=== PATIENT | male | born 1995 | race African-American/Black ===

== ENCOUNTER 2016-11-06 13:20 | Inpatient (IN) ==
[2016-11-06] MEDS ORDERED: HYDROmorphone 2 MG/1 ML VIAL ONE ×4 (13:33→18:17)
[2016-11-06] MEDS ORDERED: ONDANSETRON 4 MG/2 ML VIAL ONE ×3 (13:33→17:52)
[2016-11-06] MEDS ORDERED: SODIUM CHLORIDE 0.9% 1,000 ML IV STA (13:35)
[2016-11-06] MEDS ORDERED: GENTAMICIN INJ 140 MG in SODIUM CHLORIDE 0.9% 100 ML IV STA (13:36)
[2016-11-06] MEDS ORDERED: FAMOTIDINE 20 MG/2 ML VIAL IV STA (13:37)
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
[2016-11-06] MEDS ORDERED: ONDANSETRON 4 MG/2 ML VIAL IV STA (13:48)
[2016-11-06] MEDS ORDERED: HYDROmorphone 2 MG/1 ML VIAL IV STA ×2 (13:48→14:16)
[2016-11-06] MEDS ORDERED: DIPH/TET/ACEL PERT BOOSTER VACCINE 0.5 ML VIAL IM ONE ×2 (14:16→14:29)
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
[2016-11-06] MEDS ORDERED: ceFAZolin 1,000 MG VIAL ONE (14:29)
[2016-11-06 14:30] LABS: Basophils % 0.2 % (0.0-0.8); Eosinophils % 0.3 % (0.00-10.9); Hematocrit 43.7 VOL% (42.0-52.0); Hemoglobin 14.8 GM/DL (14.0-18.0); Immature Granulocytes % 0.3 %; Immature Granulocytes Absolute 0.04 #; Lymphocytes # 1.4 10*3/uL (1.4-4.0); Lymphocytes % 12.2 % (21.2-54.2); Mean Corpuscular HGB Conc 33.9 GM/DL (32-36); Mean Corpuscular Hemoglobin 31 PG (27-34); Mean Corpuscular Volume 90.1 FL (87-102); Mean Platelet Volume 9.9 FL (9.6-12.0); Monocytes # 0.6 10*3/uL (0.11-0.8); Monocytes % 5.1 % (1.7-12.7); Neutrophils # 9.4 10*3/uL (1.4-7.4); Neutrophils % 81.9 % (38.7-73.9); Platelet Count 213 T/CUMM (130-400); Red Blood Count 4.85 MC/CUMM (3.8-5.5); Red Cell Distribution Width 11.7 % (9.3-17.3); White Blood Count 11.5 T/CUMM (4-12)
[2016-11-06 14:40] LABS: INR 1.2; PT Patient Result 13.1 SECS; Partial Thromboplastin Time 26.8 SECS (0-40)
[2016-11-06] MEDS ORDERED: FAMOTIDINE 20 MG/2 ML VIAL IV ONE (14:48)
[2016-11-06 14:52] LABS: Albumin 4.2 G/DL (3.4-5.0); Bilirubin,Total 0.6 MG/DL (0.2-1.0); Calcium 9.2 MG/DL (8.5-10.1); Osmolality,Calculated 283.1 MOS/KG (273-304); Potassium 3.7 MMOL/L (3.5-5.1); Total Protein 7.5 G/DL (6.4-8.3)
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
[2016-11-06] MEDS ORDERED: SUCCINYLCHOLINE 200 MG/10 ML VIAL ONE (15:20)
[2016-11-06] MEDS ORDERED: PROPOFOL 200 MG/20 ML VIAL IV ONE (15:20)
[2016-11-06] MEDS ORDERED: LIDOCAINE 100 MG/5 ML SYRINGE ONE (15:20)
[2016-11-06] MEDS ORDERED: ROCURONIUM 100 MG/10 ML VIAL IV ONE (15:20)
[2016-11-06] MEDS ORDERED: ONDANSETRON 4 MG/2 ML VIAL IV PRN ×3 (15:45→17:49)
[2016-11-06] MEDS ORDERED: MAGNESIUM HYDROXIDE SUSP 30 ML UDCUP PO PRN (15:45)
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
[2016-11-06] MEDS ORDERED: HYDROmorphone 2 MG/1 ML VIAL IV PRN (15:55)
[2016-11-06] MEDS ORDERED: KETOROLAC 30 MG/1 ML VIAL IV PRN (17:00)
[2016-11-06] MEDS ORDERED: BACITRACIN OINT 0.9 GM PACK TOP ONE (17:10)
--- NOTE | 2016-11-06 17:31 | Anesthesia ---
Anesthesia Post OP - Post Ansesthetic Evaluation Patient seen in post op: Yes Resp: within normal limits CV: within normal limits Mental: within normal limits Temp: within normal limits [id number]: within normal limits Nausea and Vomiting: within normal limits Pain: within normal limits
[2016-11-06] MEDS ORDERED: LACTATED RINGERS 1,000 ML IV ONE (17:33)
[2016-11-06] MEDS ORDERED: ACETAMINOPHEN 1,000 MG/100 ML VIAL IV ONE (17:33)
[2016-11-06] MEDS ORDERED: SEVOFLURANE 1 UNIT/15 MINUTE INH ONE (17:33)
[2016-11-06] MEDS ORDERED: MIDAZOLAM 2 MG/2 ML VIAL ONE (17:33)
[2016-11-06] MEDS ORDERED: fentaNYL 100 MCG/2 ML VIAL ONE (17:33)
[2016-11-06] MEDS ORDERED: MEPERIDINE 25 MG/1 ML VIAL IV PRN (17:57)
[2016-11-06] MEDS ORDERED: MEPERIDINE 25 MG/1 ML VIAL ONE (17:59)
[2016-11-06] MEDS ORDERED: LACTATED RINGERS 1,000 ML IV SCH (18:00)
[2016-11-06] MEDS: HYDROmorphone 2 MG/1 ML VIAL IV PRN ×3 (18:18→18:35)
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
[2016-11-06] MEDS: MORPHINE 2 MG/1 ML SYRINGE IV PRN (22:42)
[2016-11-07] MEDS: DEXTROSE 5% NACL 0.45% 1,000 ML IV SCH ×3 (02:35→13:12)
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
[2016-11-07 07:49] LABS: Basophils % 0.3 % (0.0-0.8); Eosinophils % 0.6 % (0.00-10.9); Hematocrit 28.2 VOL% (42.0-52.0); Hemoglobin 9.5 GM/DL (14.0-18.0); Immature Granulocytes % 0.3 %; Immature Granulocytes Absolute 0.02 #; Lymphocytes # 2.2 10*3/uL (1.4-4.0); Lymphocytes % 30.9 % (21.2-54.2); Mean Corpuscular HGB Conc 33.7 GM/DL (32-36); Mean Corpuscular Hemoglobin 30 PG (27-34); Mean Corpuscular Volume 89.5 FL (87-102); Mean Platelet Volume 10.2 FL (9.6-12.0); Monocytes # 0.7 10*3/uL (0.11-0.8); Monocytes % 9.5 % (1.7-12.7); Neutrophils # 4.2 10*3/uL (1.4-7.4); Neutrophils % 58.4 % (38.7-73.9); Platelet Count 175 T/CUMM (130-400); Red Blood Count 3.15 MC/CUMM (3.8-5.5); Red Cell Distribution Width 11.9 % (9.3-17.3); White Blood Count 7.2 T/CUMM (4-12)
[2016-11-07 08:20] LABS: Osmolality,Calculated 285.7 MOS/KG (273-304); Potassium 3.5 MMOL/L (3.5-5.1)
[2016-11-07] MEDS: MORPHINE 2 MG/1 ML SYRINGE IV PRN (13:11)
[2016-11-08] MEDS: DEXTROSE 5% NACL 0.45% 1,000 ML IV SCH (00:02)
[2016-11-08 04:42] LABS: Basophils % 0.3 % (0.0-0.8); Eosinophils # 0.1 10*3/uL (0.0-0.87); Eosinophils % 0.7 % (0.00-10.9); Hematocrit 28.1 VOL% (42.0-52.0); Hemoglobin 9.4 GM/DL (14.0-18.0); Immature Granulocytes % 0.3 %; Immature Granulocytes Absolute 0.02 #; Lymphocytes # 2.3 10*3/uL (1.4-4.0); Lymphocytes % 30.8 % (21.2-54.2); Mean Corpuscular HGB Conc 33.5 GM/DL (32-36); Mean Corpuscular Hemoglobin 30 PG (27-34); Mean Corpuscular Volume 89.8 FL (87-102); Mean Platelet Volume 10.4 FL (9.6-12.0); Monocytes # 0.9 10*3/uL (0.11-0.8); Monocytes % 12.6 % (1.7-12.7); Neutrophils # 4.1 10*3/uL (1.4-7.4); Neutrophils % 55.3 % (38.7-73.9); Platelet Count 174 T/CUMM (130-400); Red Blood Count 3.13 MC/CUMM (3.8-5.5); Red Cell Distribution Width 11.9 % (9.3-17.3); White Blood Count 7.4 T/CUMM (4-12)
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
[2016-11-08] MEDS: MORPHINE 2 MG/1 ML SYRINGE IV PRN ×2 (08:57→19:44)
[2016-11-09 06:19] LABS: Basophils % 0.1 % (0.0-0.8); Eosinophils # 0.1 10*3/uL (0.0-0.87); Eosinophils % 1.2 % (0.00-10.9); Hematocrit 30.2 VOL% (42.0-52.0); Hemoglobin 10.1 GM/DL (14.0-18.0); Immature Granulocytes % 0.3 %; Immature Granulocytes Absolute 0.02 #; Lymphocytes # 2.1 10*3/uL (1.4-4.0); Lymphocytes % 28.1 % (21.2-54.2); Mean Corpuscular HGB Conc 33.4 GM/DL (32-36); Mean Corpuscular Hemoglobin 30 PG (27-34); Mean Corpuscular Volume 90.7 FL (87-102); Mean Platelet Volume 10.2 FL (9.6-12.0); Monocytes # 0.8 10*3/uL (0.11-0.8); Monocytes % 10.2 % (1.7-12.7); Neutrophils # 4.5 10*3/uL (1.4-7.4); Neutrophils % 60.1 % (38.7-73.9); Platelet Count 176 T/CUMM (130-400); Red Blood Count 3.33 MC/CUMM (3.8-5.5); Red Cell Distribution Width 11.8 % (9.3-17.3); White Blood Count 7.4 T/CUMM (4-12)
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
[2016-11-09 10:07] VITALS: BP 110/73
== END 2016-11-09 12:00 | disposition home or self-care (01) | DRG 494 ==
LOC: EDUNIT# → EDBD → N.ED 13:20 → N.SDSINP 15:25 → UNDODEPER 15:25 → N.3E 15:46 → N.ED 16:01 → N.SDSINP 16:03 → N.3E 11-08 16:21
PROVIDERS: ADMIT Orthopaedic Surgery; ATTEND Orthopaedic Surgery

== ENCOUNTER 2022-01-28 12:01 | Inpatient (IN) ==
[2022-01-28] MEDS ORDERED: HYDROmorphone 1 MG/1 ML SYRINGE ONE (12:04)
[2022-01-28] MEDS ORDERED: ONDANSETRON 4 MG/2 ML VIAL ONE (12:04)
[2022-01-28] MEDS ORDERED: HYDROmorphone 1 MG/1 ML SYRINGE IV STA (12:09)
[2022-01-28] MEDS ORDERED: ONDANSETRON 4 MG/2 ML VIAL IV STA (12:09)
[2022-01-28] MEDS ORDERED: LACTATED RINGERS 1,000 ML IV STA (12:09)
[2022-01-28] MEDS ORDERED: DIPH/TET/ACEL PERT BOOSTER VACCINE 0.5 ML VIAL IM ONE (12:09)
[2022-01-28 12:17] LABS: Basophils % 0.5 % (0.0-0.8); Eosinophils # 0.1 10*3/uL (0.0-0.87); Eosinophils % 1.6 % (0.00-10.9); Hematocrit 45.8 VOL% (42.0-52.0); Hemoglobin 14.6 GM/DL (14.0-18.0); Immature Granulocytes % 0.3 %; Immature Granulocytes Absolute 0.03 #; Lymphocytes # 3.8 10*3/uL (1.4-4.0); Lymphocytes % 43.7 % (21.2-54.2); Mean Corpuscular HGB Conc 31.9 GM/DL (32-36); Mean Corpuscular Volume 95.4 FL (87-102); Mean Platelet Volume 10.5 FL (9.6-12.0); Monocytes # 0.7 10*3/uL (0.11-0.8); Monocytes % 8.1 % (1.7-12.7); Neutrophils % 45.8 % (38.7-73.9); Platelet Count 223 T/CUMM (130-400); Red Cell Distribution Width 12.4 % (9.3-17.3); White Blood Count 8.7 T/CUMM (4-12)
[2022-01-28] MEDS ORDERED: ROCURONIUM 50 MG/5 ML VIAL IV ONE (12:19)
[2022-01-28] MEDS ORDERED: SUCCINYLCHOLINE 200 MG/10 ML VIAL ONE (12:19)
[2022-01-28] MEDS ORDERED: ETOMIDATE 40 MG/20 ML VIAL IV ONE (12:19)
[2022-01-28] MEDS ORDERED: MIDAZOLAM 2 MG/2 ML VIAL ONE (12:19)
[2022-01-28] MEDS ORDERED: fentaNYL 100 MCG/2 ML VIAL ONE (12:20)
[2022-01-28] MEDS ORDERED: AMPICILLIN/SULBACTAM 3,000 MG in SODIUM CHLORIDE 0.9% 100 ML IV STA (12:20)
[2022-01-28 12:34] LABS: Alanine Aminotransferase 35 U/L (16-61); Albumin 3.8 G/DL (3.4-5.0); Alkaline Phosphatase 81 U/L (45-117); Aspartate Amino Transferase 22 U/L (0-37); Blood Urea Nitrogen 14 MG/DL (7-18); Calcium 9.1 MG/DL (8.5-10.1); Carbon Dioxide 17 MMOL/L (21-32); Chloride 111 MMOL/L (98-107); Glucose 118 MG/DL (74-106); Osmolality,Calculated 280.4 MOS/KG (273-304); Potassium 3.8 MMOL/L (3.5-5.1); Sodium 140 MMOL/L (136-145); Total Protein 7.5 G/DL (6.4-8.2)
[2022-01-28 12:36] LABS: INR 1.1; PT Patient Result 11.7 SECS (10.5-12.0); Partial Thromboplastin Time 20.4 SECS (23.8-32.1)
[2022-01-28] MEDS ORDERED: PHENYLEPHRINE 10 MG/1 ML VIAL IV ONE (12:45)
[2022-01-28 12:56] LABS: Bilirubin,Urine Negative (Negative); Blood, Urine Negative (Negative); Glucose,Urine (UA) Negative (Negative); Ketones,Urine Negative (Negative); Mucus,Urine Occasional /LPF (Occasional); Nitrite,Urine Negative (Negative); Protein,Urine Negative (Negative); RBC,Urine 4 /HPF (0-4); Urine Appearance Clear (Clear); Urine Color Yellow (Yellow); Urine Specific Gravity 1.025 (1.001-1.035)
[2022-01-28] MEDS ORDERED: SODIUM CHLORIDE 0.9% 250 ML IV ONE (13:04)
[2022-01-28] MEDS ORDERED: PHENYLEPHRINE 1 MG/10 ML SYRINGE IV ONE (13:04)
[2022-01-28] MEDS ORDERED: SEVOFLURANE 1 UNIT/15 MINUTE INH ONE ×6 (13:04→14:12)
[2022-01-28] MEDS ORDERED: SODIUM CHLORIDE 0.9% 1,000 ML IV ONE (13:04)
[2022-01-28] MEDS ORDERED: LACTATED RINGERS 1,000 ML IV ONE ×2 (13:04→13:46)
[2022-01-28 13:18] LABS: Barbiturates Screen,Urine Negative (Negative); Benzodiazepines Screen,Urine Negative (Negative); Cannabinoid Screen,Urine Positive (Negative); Opiate Screen,Urine Negative (Negative); Phencyclidine Screen,Urine Negative (Negative)
[2022-01-28] MEDS ORDERED: METHYLENE BLUE 10 ML VIAL IV ONE (13:21)
[2022-01-28] MEDS ORDERED: SUGAMMADEX 200 MG/2 ML VIAL IV ONE (13:39)
[2022-01-28] MEDS: HYDROmorphone 1 MG/1 ML SYRINGE IV PRN ×5 (14:20→19:14)
[2022-01-28] MEDS ORDERED: PROMETHAZINE INJ 25 MG in SODIUM CHLORIDE 0.9% 50 ML IV PRN (14:23)
[2022-01-28] MEDS ORDERED: ONDANSETRON 4 MG/2 ML VIAL IV PRN (14:23)
[2022-01-28] MEDS ORDERED: diphenhydrAMINE 50 MG/1 ML VIAL IV PRN (14:23)
[2022-01-28] MEDS ORDERED: MEPERIDINE 50 MG/1 ML VIAL IV PRN (14:23)
[2022-01-28] MEDS ORDERED: PROMETHAZINE 25 MG/1 ML VIAL ONE (14:30)
[2022-01-28] MEDS ORDERED: LACTATED RINGERS 2,000 ML IV ONE (16:43)
[2022-01-28] MEDS: KETOROLAC 15 MG/1 ML VIAL IV SCH ×2 (16:50→22:08)
[2022-01-28 18:37] LABS: Basophils # 0.1 10*3/uL (0.0-0.2); Basophils % 0.2 % (0.0-0.8); Eosinophils % 0.1 % (0.00-10.9); Hematocrit 32.8 VOL% (42.0-52.0); Hemoglobin 10.2 GM/DL (14.0-18.0); Immature Granulocytes Absolute 0.28 #; Lymphocytes % 3.5 % (21.2-54.2); Mean Corpuscular HGB Conc 31.1 GM/DL (32-36); Mean Corpuscular Volume 99.4 FL (87-102); Mean Platelet Volume 10.8 FL (9.6-12.0); Monocytes # 1.6 10*3/uL (0.11-0.8); Monocytes % 5.6 % (1.7-12.7); Neutrophils % 89.6 % (38.7-73.9); Platelet Count 184 T/CUMM (130-400); Red Cell Distribution Width 12.4 % (9.3-17.3); White Blood Count 29.1 T/CUMM (4-12)
[2022-01-28 18:49] LABS: Calcium 7.7 MG/DL (8.5-10.1); Osmolality,Calculated 289.7 MOS/KG (273-304)
[2022-01-28] MEDS: LACTATED RINGERS 1,000 ML IV SCH (19:09)
[2022-01-28 19:14] LABS: Band Neutrophils 11 % (0-10); Lymphocytes 4 % (20-55); Platelet Estimate Adequate; Total Cells Counted 100
[2022-01-29] MEDS: HYDROmorphone 1 MG/1 ML SYRINGE IV PRN ×6 (01:51→19:55)
[2022-01-29 02:13] LABS: Basophils % 0.1 % (0.0-0.8); Hematocrit 25.1 VOL% (42.0-52.0); Hemoglobin 8.2 GM/DL (14.0-18.0); Immature Granulocytes % 0.8 %; Immature Granulocytes Absolute 0.17 #; Lymphocytes % 4.9 % (21.2-54.2); Mean Corpuscular HGB Conc 32.7 GM/DL (32-36); Mean Corpuscular Volume 95.4 FL (87-102); Mean Platelet Volume 10.2 FL (9.6-12.0); Monocytes # 1.2 10*3/uL (0.11-0.8); Monocytes % 5.8 % (1.7-12.7); Neutrophils % 88.4 % (38.7-73.9); Platelet Count 136 T/CUMM (130-400); Red Blood Count 2.63 MC/CUMM (3.8-5.5); Red Cell Distribution Width 12.3 % (9.3-17.3); White Blood Count 20.1 T/CUMM (4-12)
[2022-01-29 02:28] LABS: Potassium 4.2 MMOL/L (3.5-5.1)
[2022-01-29 02:34] LABS: Lymphocytes 3 % (20-55)
[2022-01-29 02:35] LABS: Platelet Estimate Adequate; Total Cells Counted 100
[2022-01-29] MEDS: LACTATED RINGERS 1,000 ML IV SCH ×3 (03:52→19:55)
[2022-01-29] MEDS: KETOROLAC 15 MG/1 ML VIAL IV SCH ×4 (04:34→23:52)
[2022-01-29] MEDS: ENOXAPARIN 40 MG/0.4 ML SYRINGE SUBCUT SCH (08:39)
[2022-01-29] MEDS ORDERED: diphenhydrAMINE CAP 25 MG CAPSULE PO PRN (11:15)
[2022-01-29] MEDS ORDERED: hydrOXYzine HCL 25 MG/1 ML VIAL IM ONE (13:25)
[2022-01-30] MEDS: LACTATED RINGERS 1,000 ML IV SCH (04:25)
[2022-01-30 04:52] LABS: Basophils % 0.1 % (0.0-0.8); Immature Granulocytes % 0.6 %; Immature Granulocytes Absolute 0.06 #; Lymphocytes # 1.5 10*3/uL (1.4-4.0); Lymphocytes % 16.5 % (21.2-54.2); Mean Corpuscular Volume 96.2 FL (87-102); Mean Platelet Volume 11.1 FL (9.6-12.0); Monocytes # 0.7 10*3/uL (0.11-0.8); Monocytes % 7.5 % (1.7-12.7); Neutrophils % 75.3 % (38.7-73.9); Platelet Count 111 T/CUMM (130-400); Red Blood Count 2.08 MC/CUMM (3.8-5.5); Red Cell Distribution Width 12.5 % (9.3-17.3); White Blood Count 9.3 T/CUMM (4-12)
[2022-01-30 04:55] LABS: Hemoglobin 6.4 GM/DL (14.0-18.0)
[2022-01-30 05:12] LABS: Calcium 8.5 MG/DL (8.5-10.1); Osmolality,Calculated 274.5 MOS/KG (273-304); Potassium 3.9 MMOL/L (3.5-5.1)
[2022-01-30] MEDS: KETOROLAC 15 MG/1 ML VIAL IV SCH ×4 (06:03→22:55)
[2022-01-30] MEDS: POTASSIUM CHLORIDE 20 MEQ TABLET PO PRN (07:08)
[2022-01-30] MEDS: MAGNESIUM SULF RIDER 2 GM/50 ML PREMIX IV PRN (07:08)
[2022-01-30] MEDS: HYDROmorphone 1 MG/1 ML SYRINGE IV PRN ×6 (07:36→22:55)
[2022-01-30] MEDS: ENOXAPARIN 40 MG/0.4 ML SYRINGE SUBCUT SCH (08:15)
[2022-01-30 08:56] LABS: Hematocrit 19.2 VOL% (42.0-52.0)
[2022-01-30 09:11] LABS: Hemoglobin 6.3 GM/DL (14.0-18.0)
[2022-01-31 05:16] LABS: Basophils % 0.2 % (0.0-0.8); Eosinophils % 0.8 % (0.00-10.9); Immature Granulocytes % 0.2 %; Immature Granulocytes Absolute 0.01 #; Lymphocytes # 1.1 10*3/uL (1.4-4.0); Lymphocytes % 21.6 % (21.2-54.2); Mean Corpuscular HGB Conc 32.4 GM/DL (32-36); Mean Corpuscular Volume 91.6 FL (87-102); Mean Platelet Volume 10.7 FL (9.6-12.0); Monocytes # 0.6 10*3/uL (0.11-0.8); Monocytes % 10.9 % (1.7-12.7); Neutrophils % 66.3 % (38.7-73.9); Platelet Count 125 T/CUMM (130-400); Red Cell Distribution Width 13.6 % (9.3-17.3)
[2022-01-31 05:29] LABS: Hemoglobin 8.1 GM/DL (14.0-18.0); Red Blood Count 2.73 MC/CUMM (3.8-5.5); White Blood Count 5.1 T/CUMM (4-12)
[2022-01-31 05:30] LABS: Calcium 8.3 MG/DL (8.5-10.1); Osmolality,Calculated 270.8 MOS/KG (273-304); Potassium 3.4 MMOL/L (3.5-5.1)
[2022-01-31] MEDS: KETOROLAC 15 MG/1 ML VIAL IV SCH ×2 (05:35→11:50)
[2022-01-31] MEDS: HYDROmorphone 1 MG/1 ML SYRINGE IV PRN ×5 (05:35→22:42)
[2022-01-31 05:39] LABS: Hypochromia Slight; Lymphocytes 21 % (20-55); Platelet Estimate Normal; Total Cells Counted 100
[2022-01-31] MEDS: ENOXAPARIN 40 MG/0.4 ML SYRINGE SUBCUT SCH (09:30)
[2022-01-31] MEDS: POTASSIUM CHLORIDE 20 MEQ TABLET PO PRN ×2 (09:30→11:50)
[2022-01-31] MEDS ORDERED: ACETAMINOPHEN 325 MG TABLET PO PRN (16:52)
[2022-01-31] MEDS: PIPERACILLIN/TAZOBACTAM 3,375 MG in SODIUM CHLORIDE 0.9% 100 ML IV SCH (17:30)
[2022-01-31] MEDS: ONDANSETRON 4 MG/2 ML VIAL IV PRN (19:35)
[2022-01-31 20:03] LABS: Basophils % 0.2 % (0.0-0.8); Hematocrit 29.8 VOL% (42.0-52.0); Hemoglobin 9.6 GM/DL (14.0-18.0); Immature Granulocytes % 0.5 %; Immature Granulocytes Absolute 0.03 #; Lymphocytes # 0.7 10*3/uL (1.4-4.0); Lymphocytes % 10.8 % (21.2-54.2); Mean Corpuscular HGB Conc 32.2 GM/DL (32-36); Mean Platelet Volume 10.4 FL (9.6-12.0); Monocytes # 1.1 10*3/uL (0.11-0.8); Neutrophils % 72.5 % (38.7-73.9); Platelet Count 178 T/CUMM (130-400); Red Blood Count 3.24 MC/CUMM (3.8-5.5); Red Cell Distribution Width 13.2 % (9.3-17.3); White Blood Count 6.6 T/CUMM (4-12)
[2022-01-31 21:07] LABS: Band Neutrophils 40 % (0-10); Eosinophils 1 % (0-10); Lymphocytes 17 % (20-55); Metamyelocytes 1 %; Total Cells Counted 100
[2022-01-31 21:08] LABS: Anisocytosis Slight; Burr Cells Slight; Platelet Estimate Normal
[2022-02-01] MEDS: PROMETHAZINE 25 MG/1 ML VIAL IM PRN (00:12)
[2022-02-01] MEDS: HYDROmorphone 1 MG/1 ML SYRINGE IV PRN ×6 (02:18→22:35)
[2022-02-01] MEDS: PIPERACILLIN/TAZOBACTAM 3,375 MG in SODIUM CHLORIDE 0.9% 100 ML IV SCH ×3 (02:20→17:30)
[2022-02-01 04:04] LABS: Basophils # 0.1 10*3/uL (0.0-0.2); Basophils % 0.5 % (0.0-0.8); Eosinophils # 0.1 10*3/uL (0.0-0.87); Eosinophils % 0.5 % (0.00-10.9); Hematocrit 29.9 VOL% (42.0-52.0); Immature Granulocytes % 1.9 %; Immature Granulocytes Absolute 0.18 #; Lymphocytes % 10.9 % (21.2-54.2); Mean Corpuscular HGB Conc 33.4 GM/DL (32-36); Mean Corpuscular Volume 89.8 FL (87-102); Mean Platelet Volume 10.6 FL (9.6-12.0); Monocytes # 1.4 10*3/uL (0.11-0.8); Monocytes % 14.6 % (1.7-12.7); Neutrophils % 71.6 % (38.7-73.9); Platelet Count 204 T/CUMM (130-400); Red Blood Count 3.33 MC/CUMM (3.8-5.5); Red Cell Distribution Width 12.8 % (9.3-17.3); White Blood Count 9.4 T/CUMM (4-12)
[2022-02-01 04:20] LABS: Osmolality,Calculated 269.4 MOS/KG (273-304); Potassium 3.6 MMOL/L (3.5-5.1)
[2022-02-01 04:36] LABS: Band Neutrophils 10 % (0-10); Eosinophils 1 % (0-10); Lymphocytes 15 % (20-55); Metamyelocytes 1 %; Total Cells Counted 100
[2022-02-01 04:38] LABS: Microcytosis Slight; Polychromasia Slight
[2022-02-01 04:39] LABS: Atypical Lymphocytes Few
[2022-02-01 04:40] LABS: Platelet Estimate Normal
[2022-02-01] MEDS ORDERED: LACTATED RINGERS 500 ML IV ONE (07:47)
[2022-02-01] MEDS: POTASSIUM CHLORIDE 20 MEQ TABLET PO PRN ×2 (08:13→11:40)
[2022-02-01] MEDS: MAGNESIUM SULF RIDER 2 GM/50 ML PREMIX IV PRN (08:13)
[2022-02-01] MEDS: ENOXAPARIN 40 MG/0.4 ML SYRINGE SUBCUT SCH (08:13)
[2022-02-01] MEDS: LACTATED RINGERS 1,000 ML IV SCH ×2 (09:45→14:51)
[2022-02-01] MEDS: PANTOPRAZOLE 40 MG VIAL IV SCH (11:35)
[2022-02-01] MEDS: ONDANSETRON 4 MG/2 ML VIAL IV PRN ×2 (11:45→18:00)
[2022-02-02] MEDS: HYDROmorphone 1 MG/1 ML SYRINGE IV PRN ×5 (00:36→21:26)
[2022-02-02] MEDS: PIPERACILLIN/TAZOBACTAM 3,375 MG in SODIUM CHLORIDE 0.9% 100 ML IV SCH (01:55)
[2022-02-02] MEDS: LACTATED RINGERS 1,000 ML IV SCH (01:59)
[2022-02-02 06:31] LABS: Basophils % 0.2 % (0.0-0.8); Eosinophils # 0.2 10*3/uL (0.0-0.87); Eosinophils % 1.8 % (0.00-10.9); Hematocrit 26.4 VOL% (42.0-52.0); Hemoglobin 8.7 GM/DL (14.0-18.0); Immature Granulocytes % 1.1 %; Immature Granulocytes Absolute 0.09 #; Lymphocytes # 1.5 10*3/uL (1.4-4.0); Lymphocytes % 18.6 % (21.2-54.2); Mean Corpuscular Volume 90.1 FL (87-102); Mean Platelet Volume 10.9 FL (9.6-12.0); Monocytes # 1.7 10*3/uL (0.11-0.8); Monocytes % 20.7 % (1.7-12.7); Neutrophils % 57.6 % (38.7-73.9); Platelet Count 226 T/CUMM (130-400); Red Blood Count 2.93 MC/CUMM (3.8-5.5); Red Cell Distribution Width 12.8 % (9.3-17.3); White Blood Count 8.2 T/CUMM (4-12)
[2022-02-02] MEDS: ONDANSETRON 4 MG/2 ML VIAL IV PRN ×4 (06:53→22:29)
[2022-02-02 06:54] LABS: Band Neutrophils 3 % (0-10); Eosinophils 3 % (0-10); Lymphocytes 13 % (20-55); Platelet Estimate Adequate; Total Cells Counted 100
[2022-02-02 07:04] LABS: Albumin 2.4 G/DL (3.4-5.0); Bilirubin,Total 0.9 MG/DL (0.20-1.00); Calcium 8.4 MG/DL (8.5-10.1); Osmolality,Calculated 270.1 MOS/KG (273-304); Potassium 3.3 MMOL/L (3.5-5.1); Total Protein 6.2 G/DL (6.4-8.2)
[2022-02-02] MEDS: PANTOPRAZOLE 40 MG VIAL IV SCH (08:55)
[2022-02-02] MEDS: ENOXAPARIN 40 MG/0.4 ML SYRINGE SUBCUT SCH (08:55)
[2022-02-03] MEDS: HYDROmorphone 1 MG/1 ML SYRINGE IV PRN ×4 (02:24→19:24)
[2022-02-03 04:56] LABS: Basophils % 0.2 % (0.0-0.8); Eosinophils # 0.1 10*3/uL (0.0-0.87); Hematocrit 25.4 VOL% (42.0-52.0); Hemoglobin 8.2 GM/DL (14.0-18.0); Immature Granulocytes % 1.1 %; Immature Granulocytes Absolute 0.11 #; Lymphocytes # 1.3 10*3/uL (1.4-4.0); Lymphocytes % 12.6 % (21.2-54.2); Mean Corpuscular HGB Conc 32.3 GM/DL (32-36); Mean Corpuscular Volume 91.4 FL (87-102); Mean Platelet Volume 10.6 FL (9.6-12.0); Monocytes # 1.6 10*3/uL (0.11-0.8); Monocytes % 16.4 % (1.7-12.7); Neutrophils % 68.7 % (38.7-73.9); Platelet Count 255 T/CUMM (130-400); Red Blood Count 2.78 MC/CUMM (3.8-5.5); Red Cell Distribution Width 12.5 % (9.3-17.3); White Blood Count 9.9 T/CUMM (4-12)
[2022-02-03 05:11] LABS: Calcium 8.4 MG/DL (8.5-10.1); Potassium 3.8 MMOL/L (3.5-5.1)
[2022-02-03 05:17] LABS: Band Neutrophils 1 % (0-10); Lymphocytes 12 % (20-55); Nucleated Red Blood Cells 1 (0-5); Platelet Estimate Adequate; Total Cells Counted 100
[2022-02-03] MEDS ORDERED: HYDROmorphone 1 MG/1 ML SYRINGE IV PRN (05:44)
[2022-02-03] MEDS: ENOXAPARIN 40 MG/0.4 ML SYRINGE SUBCUT SCH (08:43)
[2022-02-03] MEDS: PANTOPRAZOLE 40 MG VIAL IV SCH (08:43)
[2022-02-03] MEDS ORDERED: LIDOCAINE/PRILOCAINE CREAM 5 GM TUBE TOP ONE (14:27)
[2022-02-03] MEDS: ONDANSETRON 4 MG/2 ML VIAL IV PRN ×2 (15:21→19:29)
[2022-02-03] MEDS: PROMETHAZINE 25 MG/1 ML VIAL IM PRN (22:28)
[2022-02-04] MEDS: HYDROmorphone 1 MG/1 ML SYRINGE IV PRN ×2 (03:45→08:47)
[2022-02-04] MEDS: ONDANSETRON 4 MG/2 ML VIAL IV PRN (03:49)
[2022-02-04] MEDS: ENOXAPARIN 40 MG/0.4 ML SYRINGE SUBCUT SCH (08:46)
[2022-02-04] MEDS: PANTOPRAZOLE 40 MG VIAL IV SCH (08:46)
[2022-02-04 11:39] VITALS: BP 136/71
== END 2022-02-04 14:00 | disposition home or self-care (01) | DRG 330 ==
LOC: N.ED 12:01 → N.ICU 12:37 → N.EDINP 13:13 → N.ICU 13:41 → N.3E 01-30 15:32
PROVIDERS: ADMIT Surgery; ATTEND Surgery

== ENCOUNTER 2022-02-07 12:14 | Inpatient (IN) ==
[2022-02-07] MEDS ORDERED: SODIUM CHLORIDE 0.9% 1,000 ML IV STA (13:07)
[2022-02-07 13:32] LABS: Basophils # 0.1 10*3/uL (0.0-0.2); Basophils % 0.2 % (0.0-0.8); Eosinophils % 0.1 % (0.00-10.9); Hematocrit 28.7 VOL% (42.0-52.0); Hemoglobin 9.4 GM/DL (14.0-18.0); Immature Granulocytes % 2.2 %; Immature Granulocytes Absolute 0.44 #; Lymphocytes # 1.5 10*3/uL (1.4-4.0); Lymphocytes % 7.4 % (21.2-54.2); Mean Corpuscular HGB Conc 32.8 GM/DL (32-36); Mean Corpuscular Volume 91.1 FL (87-102); Mean Platelet Volume 9.9 FL (9.6-12.0); Monocytes # 1.6 10*3/uL (0.11-0.8); Monocytes % 8.1 % (1.7-12.7); Platelet Count 496 T/CUMM (130-400); Red Blood Count 3.15 MC/CUMM (3.8-5.5); White Blood Count 20.3 T/CUMM (4-12)
[2022-02-07 14:32] LABS: Albumin 2.7 G/DL (3.4-5.0); Bilirubin,Total 0.6 MG/DL (0.20-1.00); Calcium 8.7 MG/DL (8.5-10.1); Osmolality,Calculated 268.2 MOS/KG (273-304); Potassium 3.5 MMOL/L (3.5-5.1); Total Protein 6.9 G/DL (6.4-8.2)
[2022-02-07 14:40] LABS: Anisocytosis Slight; Lymphocytes 8 % (20-55); Polychromasia Slight; Total Cells Counted 100
[2022-02-07] MEDS ORDERED: PIPERACILLIN/TAZOBACTAM 3,375 MG in SODIUM CHLORIDE 0.9% 100 ML IV STA (16:12)
[2022-02-07 16:26] LABS: Bacteria,Urine Occasional /HPF (Few); Mucus,Urine Occasional /LPF (Occasional); RBC,Urine 8 /HPF (0-4); Squamous Epithelial Cell,Urine Occasional /HPF (0-10)
[2022-02-07 16:28] LABS: Bilirubin,Urine Negative (Negative); Blood, Urine Negative (Negative); Glucose,Urine (UA) Negative (Negative); Ketones,Urine 40 mg/dL (Negative); Nitrite,Urine Negative (Negative); Protein,Urine Negative (Negative); Urine Appearance Clear (Clear); Urine Color Yellow (Yellow); Urine Specific Gravity <= 1.005 (1.001-1.035)
[2022-02-07] MEDS ORDERED: ACETAMINOPHEN 325 MG TABLET PO PRN (17:15)
[2022-02-07] MEDS: MORPHINE 2 MG/1 ML SYRINGE IV PRN (17:26)
[2022-02-07 17:44] LABS: Barbiturates Screen,Urine Negative (Negative); Benzodiazepines Screen,Urine Negative (Negative); Cannabinoid Screen,Urine Positive (Negative); Opiate Screen,Urine Positive (Negative); Phencyclidine Screen,Urine Negative (Negative)
[2022-02-07] MEDS: LACTATED RINGERS 1,000 ML IV SCH (18:05)
[2022-02-07] MEDS: ONDANSETRON 4 MG/2 ML VIAL IV PRN (21:06)
[2022-02-08] MEDS: LACTATED RINGERS 1,000 ML IV SCH ×4 (02:51→22:12)
[2022-02-08 08:23] LABS: Basophils % 0.2 % (0.0-0.8); Eosinophils % 0.1 % (0.00-10.9); Hematocrit 27.4 VOL% (42.0-52.0); Hemoglobin 8.8 GM/DL (14.0-18.0); Immature Granulocytes % 1.6 %; Immature Granulocytes Absolute 0.27 #; Lymphocytes # 1.4 10*3/uL (1.4-4.0); Lymphocytes % 8.2 % (21.2-54.2); Mean Corpuscular HGB Conc 32.1 GM/DL (32-36); Mean Corpuscular Volume 93.2 FL (87-102); Mean Platelet Volume 9.8 FL (9.6-12.0); Monocytes % 5.7 % (1.7-12.7); Neutrophils % 84.2 % (38.7-73.9); Platelet Count 520 T/CUMM (130-400); Red Blood Count 2.94 MC/CUMM (3.8-5.5); Red Cell Distribution Width 13.8 % (9.3-17.3)
[2022-02-08] MEDS: MORPHINE 2 MG/1 ML SYRINGE IV PRN ×4 (08:23→21:57)
[2022-02-08] MEDS: ONDANSETRON 4 MG/2 ML VIAL IV PRN ×3 (08:33→21:55)
[2022-02-08] MEDS: PANTOPRAZOLE 40 MG TABLET PO SCH (09:51)
[2022-02-09] MEDS: MORPHINE 2 MG/1 ML SYRINGE IV PRN ×4 (02:45→22:37)
[2022-02-09 05:04] LABS: Basophils % 0.2 % (0.0-0.8); Eosinophils # 0.1 10*3/uL (0.0-0.87); Eosinophils % 0.3 % (0.00-10.9); Hematocrit 25.3 VOL% (42.0-52.0); Immature Granulocytes Absolute 0.18 #; Lymphocytes # 1.5 10*3/uL (1.4-4.0); Lymphocytes % 8.4 % (21.2-54.2); Mean Corpuscular HGB Conc 31.6 GM/DL (32-36); Mean Corpuscular Volume 93.4 FL (87-102); Mean Platelet Volume 9.7 FL (9.6-12.0); Monocytes % 5.5 % (1.7-12.7); Neutrophils % 84.6 % (38.7-73.9); Platelet Count 466 T/CUMM (130-400); Red Blood Count 2.71 MC/CUMM (3.8-5.5); Red Cell Distribution Width 13.6 % (9.3-17.3)
[2022-02-09 05:24] LABS: Calcium 8.8 MG/DL (8.5-10.1); Osmolality,Calculated 275.4 MOS/KG (273-304); Potassium 3.6 MMOL/L (3.5-5.1)
[2022-02-09] MEDS: LACTATED RINGERS 1,000 ML IV SCH ×2 (07:54→12:42)
[2022-02-09] MEDS ORDERED: fentaNYL 100 MCG/2 ML VIAL IV ONE (09:13)
[2022-02-09] MEDS ORDERED: DIAZEPAM 5 MG TABLET PO ONE (09:13)
[2022-02-09] MEDS ORDERED: MIDAZOLAM 2 MG/2 ML VIAL IV ONE (09:13)
[2022-02-09] MEDS: PANTOPRAZOLE 40 MG TABLET PO SCH (09:40)
[2022-02-09] MEDS: SODIUM CHLORIDE 0.45% 1,000 ML IV SCH (09:52)
[2022-02-09] MEDS: ONDANSETRON 4 MG/2 ML VIAL IV PRN ×2 (15:05→22:37)
[2022-02-10] MEDS: MORPHINE 2 MG/1 ML SYRINGE IV PRN ×4 (02:42→19:39)
[2022-02-10] MEDS: LACTATED RINGERS 1,000 ML IV SCH ×3 (04:20→14:18)
[2022-02-10 07:09] LABS: Basophils % 0.3 % (0.0-0.8); Eosinophils # 0.1 10*3/uL (0.0-0.87); Eosinophils % 0.9 % (0.00-10.9); Hematocrit 23.9 VOL% (42.0-52.0); Hemoglobin 7.6 GM/DL (14.0-18.0); Immature Granulocytes % 0.9 %; Lymphocytes # 1.5 10*3/uL (1.4-4.0); Lymphocytes % 13.7 % (21.2-54.2); Mean Corpuscular HGB Conc 31.8 GM/DL (32-36); Mean Corpuscular Volume 92.3 FL (87-102); Mean Platelet Volume 9.5 FL (9.6-12.0); Monocytes # 0.6 10*3/uL (0.11-0.8); Monocytes % 5.4 % (1.7-12.7); Neutrophils % 78.8 % (38.7-73.9); Platelet Count 440 T/CUMM (130-400); Red Blood Count 2.59 MC/CUMM (3.8-5.5); Red Cell Distribution Width 13.3 % (9.3-17.3); White Blood Count 11.1 T/CUMM (4-12)
[2022-02-10 07:35] LABS: Calcium 8.5 MG/DL (8.5-10.1); Osmolality,Calculated 270.7 MOS/KG (273-304); Potassium 3.5 MMOL/L (3.5-5.1)
[2022-02-10] MEDS: PANTOPRAZOLE 40 MG TABLET PO SCH (09:23)
[2022-02-10] MEDS: ENOXAPARIN 40 MG/0.4 ML SYRINGE SUBCUT SCH (09:24)
[2022-02-10] MEDS: ONDANSETRON 4 MG/2 ML VIAL IV PRN ×2 (09:24→19:39)
[2022-02-10] MEDS: SODIUM CHLORIDE 0.45% 1,000 ML IV SCH (17:47)
[2022-02-11] MEDS: LACTATED RINGERS 1,000 ML IV SCH ×2 (01:28→01:32)
[2022-02-11] MEDS: ONDANSETRON 4 MG/2 ML VIAL IV PRN ×2 (01:42→07:43)
[2022-02-11] MEDS: MORPHINE 2 MG/1 ML SYRINGE IV PRN ×2 (01:49→07:45)
[2022-02-11 05:10] LABS: Basophils % 0.2 % (0.0-0.8); Eosinophils # 0.1 10*3/uL (0.0-0.87); Eosinophils % 1.1 % (0.00-10.9); Hematocrit 23.9 VOL% (42.0-52.0); Hemoglobin 7.4 GM/DL (14.0-18.0); Immature Granulocytes % 0.7 %; Immature Granulocytes Absolute 0.08 #; Lymphocytes # 1.4 10*3/uL (1.4-4.0); Lymphocytes % 12.2 % (21.2-54.2); Mean Corpuscular Volume 92.3 FL (87-102); Mean Platelet Volume 9.9 FL (9.6-12.0); Monocytes # 0.7 10*3/uL (0.11-0.8); Neutrophils % 79.8 % (38.7-73.9); Platelet Count 459 T/CUMM (130-400); Red Blood Count 2.59 MC/CUMM (3.8-5.5); Red Cell Distribution Width 13.4 % (9.3-17.3); White Blood Count 11.4 T/CUMM (4-12)
[2022-02-11 05:30] LABS: Calcium 8.7 MG/DL (8.5-10.1); Osmolality,Calculated 270.7 MOS/KG (273-304); Potassium 3.9 MMOL/L (3.5-5.1)
[2022-02-11 07:58] VITALS: BP 123/81
[2022-02-11] MEDS ORDERED: CEFUROXIME 500 MG TABLET PO SCH (08:00)
[2022-02-11] MEDS: PANTOPRAZOLE 40 MG TABLET PO SCH (09:13)
[2022-02-11] MEDS: ENOXAPARIN 40 MG/0.4 ML SYRINGE SUBCUT SCH (10:03)
== END 2022-02-11 11:19 | disposition home or self-care (01) | DRG 862 ==
LOC: N.ED 12:14 → N.EDINP 16:42 → N.3E 17:44
PROVIDERS: ADMIT Surgery; ATTEND Surgery